=== PATIENT | male | born 1990 | race Hispanic/Latino ===

== ENCOUNTER 2024-10-26 14:50 | Emergency (ER) | payer BC, SELFPAY ==
[2024-10-26 15:11] VITALS: BP 170/74; PULSE 87; RESP 16; TEMP 36.4; O2SAT 99
--- NOTE | 2024-10-26 15:36 | ED_ITS ---
HPI - Ear Problem General Chief complaint: Ear Stated complaint: Ear, Maybe needing tubes Time Seen by Provider: 10/26/24 15:36 Focused HPI: This is a 33 year old male that presents to the ER for frequent ear infections. This has been ongoing over the last couple of years. He tried to see an ENT doctor, but they did not accept his insurance. Reports bilateral ear pain currently. Was prescribed prednisone recently for this by urgent care with little relief. Reports drainage from both ears. Denies fevers. GENERAL: Well-appearing, well-nourished, and in no acute distress. HEAD: Normocephalic, atraumatic. CHEST: Clear to auscultation. ?No respiratory distress. HEART: Regular rate and rhythm.? NEURO: ?Alert and oriented x3. Patient screened in triage and initial orders placed.? ?Additional care and disposition to be based upon?diagnostic testing and treatment. Related Data Allergies Allergy/AdvReac Type Severity Reaction Status Date / Time No Known Allergies Allergy Verified 10/26/24 14:51 Review of Systems Review of Systems: All systems reviewed & are unremarkable except as noted in HPI and below Constitutional: Constitutional: Denies fever(s) ENT: Comments: Reports otalgia PMFSH Past Medical History Medical History (Updated 10/26/24 @ 17:22 by Su Dukes PA-C) No active medical problems Social History Social History (Updated 10/26/24 @ 17:22 by Su Dukes PA-C) Substance use: never Exam Narrative: GENERAL: Well-appearing, well-nourished, and in no acute distress. HEAD: Normocephalic, atraumatic. EYES: EOMI. ENT: Nares clear, no rhinorrhea or epistaxis. Mucous membranes moist. Bilateral TMs pearly brantley non-bulging. bilateral TMs are erythematous and bulging. Left external auditory canal with moderate irritation NECK: Supple. No adenopathy or masses. EXTREMITIES: Normal range of motion. No edema. SKIN: Warm, dry, no rash. NEURO: No focal deficits. Alert and oriented x3. PSYCH: Normal mood and affect Course Course Emergency Course: patient updated on his workup and agrees with plan of care Vital Signs Vital signs: Vital Signs Temperature 97.6 F 10/26/24 15:11 Pulse Rate 87 10/26/24 15:11 Respiratory Rate 16 10/26/24 15:11 Blood Pressure 170/74 H 10/26/24 15:11 Pulse Oximetry 99 10/26/24 15:11 Temperature 97.6 F 10/26/24 15:11 Pulse Rate 87 10/26/24 15:11 Respiratory Rate 16 10/26/24 15:11 Blood Pressure 170/74 H 10/26/24 15:11 Pulse Oximetry 99 10/26/24 15:11 Medical Decision Making MDM Narrative Medical decision making narrative: patient presents to the emergency department for ear pain. Reports this has been a chronic issue for him over the last several years. Has not been evaluated by ENT for this yet. Today he does have findings of otitis media bilaterally with erythematous, bulging TMs. Also has some findings of otitis externa on the left. Will be started on oral antibiotics as well as topical. Will be given follow-up with ENT. He was given warnings to return to the ER Vital Signs Vital Signs: Vital Signs Temperature 97.6 F 10/26/24 15:11 Pulse Rate 87 10/26/24 15:11 Respiratory Rate 16 10/26/24 15:11 Blood Pressure 170/74 H 10/26/24 15:11 Pulse Oximetry 99 10/26/24 15:11 Temperature 97.6 F 10/26/24 15:11 Pulse Rate 87 10/26/24 15:11 Respiratory Rate 16 10/26/24 15:11 Blood Pressure 170/74 H 10/26/24 15:11 Pulse Oximetry 99 10/26/24 15:11 Critical Care Time Critical Care Time Critical Care Time: No Discharge Plan Discharge Clinical Impression: Otitis media Qualifiers: Otitis media type: unspecified Chronicity: acute Qualified Code(s): H66.90 - Otitis media, unspecified, unspecified ear Patient Disposition: Home, Self-Care Condition: Stable Instructions: Antibiotic Form, Swimmer's Ear (ED), Ear Infection (ED) Additional Instructions: Return to the emergency department for worsening symptoms, or any other concerns Remain well-hydrated, get plenty of rest. Take Tylenol or Motrin [id number] for pain as needed. Flonase for nasal congestion. Zyrtec for runny nose. Take oral antibiotic as prescribed. Instill topical antibiotic as prescribed in the left ear Follow up with ENT Patient Language: Kazakh Prescriptions: New amoxicillin-pot clavulanate 875-125 mg tablet 1 tablet PO Q12H 10 Days Qty: 20 0RF ofloxacin 0.3 % drops 10 drp LEFT EAR DAILY 7 Days Qty: 10 0RF Follow-up/Referrals: Margarito Murphy MD [Physician] - UNKNOWN,DOCTOR [Primary Care Provider] -
== END 2024-10-26 17:40 | disposition home or self-care (01) ==
LOC: ANHED 15:49
PROVIDERS: Emergency Provider Physician Assistant
DX: H66.93 Otitis media, unspecified, bilateral (principal)
CPT/HCPCS: 99283

== ENCOUNTER 2025-07-16 15:36 | Emergency (ER) | payer BC, SELFPAY ==
--- NOTE | ~2025-07-16 | XR_ITS ---
EXAMINATION: XR ankle LT min 3V, XR foot LT min 3V DATE: 07/16/2025 20:22 INDICATION: Left foot and ankle pain post sports injury TECHNIQUE: 1. Anteroposterior, mortise, additional oblique and lateral view of the left ankle were obtained. 2. Dorsoplantar, two oblique and lateral views of the left foot were obtained. COMPARISON: None. FINDINGS: Alignment of the left foot and ankle is normal. No fracture or osteochondral lesion. Joint spaces are well maintained. No ankle joint effusion. The soft tissues are unremarkable. IMPRESSION: 1. Negative left foot and ankle radiographs. Reviewed, dictated and finalized at location A. IMPRESSION: 1. Negative left foot and ankle radiographs.
[2025-07-16 15:41] VITALS: BP 187/61; PULSE 97; RESP 20; TEMP 36.5; O2SAT 99
[2025-07-16 18:43] VITALS: BP 140/83; PULSE 99; RESP 20; TEMP 36.4; O2SAT 95
[2025-07-16 19:30] VITALS: BP 130/73; PULSE 85; PULSE 86; RESP 14; RESP 16; O2SAT 97; O2SAT 98
--- NOTE | 2025-07-16 21:53 | ED_ITS ---
HPI - Extremity Injury (Lower) General Chief Complaint: Extremity Injury, Lower Stated Complaint: L ankle injury Time Seen by Provider: 07/16/25 20:57 Source: patient Mode of arrival: ambulatory Limitations: no limitations History of Present Illness HPI Narrative: Patient is a 34-year-old male who presents the ED with report of left ankle/calf pain. Patient reports he was playing basketball and went to taken off in a sprint and felt a pain/snap in his left posterior ankle/heel. Was unable to bear any weight on his L foot afterwards. Denies any other injuries. Denies numbness. Has not taken anything for pain. Related Data Allergies Allergy/AdvReac Type Severity Reaction Status Date / Time No Known Allergies Allergy Verified 07/16/25 19:29 Review of Systems Review of Systems: All systems reviewed & are unremarkable except as noted in HPI. All systems reviewed & are unremarkable except as noted in HPI and below PMFSH Past Medical History Medical History No active medical problems Social History Social History Substance use: never Exam Narrative: GENERAL: Well appearing, well-nourished, non-toxic, in no acute distress. HEAD: Normocephalic, atraumatic. RESPIRATORY: Airway patent, respirations nonlabored. CARDIOVASCULAR: Regular rate and rhythm. Pedal pulses intact and easily palpable. MUSCULOSKELETAL: No gross deformities. Patient unable to Dorsi or plantar flex on left ankle. Sensation intact. Capillary refill intact. Swelling, tenderness to palpation, bruising to left heel/Achilles region, distal calf. No palpable tendon along posterior heel/ankle. Positive Ruiz test LLE. SKIN: Warm, dry, normal color. NEURO: A&O X3. Speech clear. No ataxic movements. PSYCHIATRIC: Appropriate mood and affect. Normal interaction. Course Vital Signs Vital signs: Vital Signs Temperature 97.7 F 07/16/25 15:41 Pulse Rate 97 07/16/25 15:41 Respiratory Rate 20 07/16/25 15:41 Blood Pressure 187/61 H 07/16/25 15:41 Pulse Oximetry 99 07/16/25 15:41 Oxygen Delivery Room Air 07/16/25 15:41 Temperature 97.6 F 07/16/25 18:43 Pulse Rate 76 07/16/25 22:23 Respiratory Rate 14 07/16/25 22:23 Blood Pressure 139/71 07/16/25 22:23 Pulse Oximetry 99 07/16/25 22:23 Oxygen Delivery Room Air 07/16/25 19:30 MDM - Extremity Injury (Lower) MDM Narrative Medical decision making narrative: Exam concerning for a ruptured Achilles tendon of left lower extremity. Positive Ruiz test. History consistent with this as well. Otherwise neurovascularly intact. No other injuries. X-rays interpreted by myself without obvious acute osseous abnormality. There is a subtle cortical irregularity along posterior talus on lateral views of ankle xray, but does not appear consistent with acute fx. Patient placed in short leg posterior splint. Given crutches. Given pain control. Will be referred to orthopedics for further evaluation. Discussed rice therapy, strict nonweightbearing, strict return precautions. Patient in agreement plan. Discharged in stable condition. Medical Records Attestation: I reviewed the patient's medical records. Imaging Data Attestation: I personally reviewed and interpreted this imaging study as follows: Discharge Plan Discharge Clinical Impression: Rupture Achilles tendon Qualifiers: Encounter type: initial encounter Laterality: left Qualified Code(s): S86.012A - Strain of left Achilles tendon, initial encounter Patient Disposition: Home Condition: Stable Instructions: Antibiotic Form, Achilles Tendon Rupture (ED) Additional Instructions: You need to follow-up with orthopedics for further evaluation. Call office Thursday to make follow-up appointment. Wear splint until seen by orthopedics. Avoid weight-bearing on left leg. Use crutches for assistance with walking. Recommend frequent elevation of leg, frequent icing to ankle/calf. Recommend Tylenol/ibuprofen around the clock as needed for pain. Recommend oxycodone as needed for more severe pain. Return to the ED if you experience worsening pain/swelling, recurrent injury, numbness, or any other symptoms of concern. Patient Language: Hungarian Prescriptions: New oxycodone 5 mg tablet 5 mg PO Q6H PRN (Reason: pain) Qty: 20 0RF No Action amoxicillin-pot clavulanate 875-125 mg tablet 1 tablet PO Q12H 10 Days Qty: 20 0RF ofloxacin 0.3 % drops 10 drp LEFT EAR DAILY 7 Days Qty: 10 0RF Follow-up/Referrals: Ralph Ryder MD [Physician, Orthopedics] Referral Note: ORTHOPEDICS UNKNOWN,DOCTOR [Primary Care Provider] Time of Disposition: 21:56
[2025-07-16] MEDS: HYDROcodone/acetaminophen (*CRX) 5-325 MG TABLET 1 TAB PO (22:05)
[2025-07-16] MEDS: KETOROLAC (*BKC) 60 MG/2 ML VIAL IM (22:05)
[2025-07-16 22:23] VITALS: BP 139/71; PULSE 76; RESP 14; O2SAT 99
[2025-07-16 22:30] VITALS: BP 139/71; PULSE 76; RESP 14; O2SAT 99
== END 2025-07-16 22:30 | disposition home or self-care (01) ==
PROVIDERS: Emergency Provider Physician Assistant
DX: S86.012A Strain of left Achilles tendon, initial encounter (principal); X50.9XXA Other and unspecified overexertion or strenuous movements or postures, initial encounter; Y93.67 Activity, basketball
CPT/HCPCS: 29515; 73610; 73630; 96372; 99283; A9270; J1885

== ENCOUNTER 2025-07-26 08:08 | Emergency (ER) | payer BC, SELFPAY ==
--- OUTSIDE RECORDS SUMMARY | 2025-07-25 07:41 | XMS_ITS | Continuity of Care Document ---
Author Organization [facility] Address [address] [facility] [place] [address] Phone Care Team Providers Care Customer Service Driver Name Role Phone Renzo Bryson MD Unavailable Unavailable Allergies, Adverse Reactions, Alerts Substance Reaction Status Criticality No Known Allergies Active No Inform ation Procedures Procedure Date OFFICE/OUTPATIENT VISIT, [facility] Advance Directives Directive Yes / No Effective Date File Name No Information Encounters Encounter Description Practice Location Reason(s) For Visit Diagnoses Date Provider Providers Copied on Encounter OFFICE/OUTPATI ENT VISIT, [facility], [address], [id number], tel:[phone] [facility] calf (chief complaint) Pain in left leg Braydon Muller. [address] [place], [place], [id number], . tel:[phone] Family History Family Member Type Diagnosis Age At Onset No Information Payers Payer name Insurance type Covered libertarian ID Kenzie howardashley(s) [facility] CI [id number] Social History Type Description Quantity Date Captured Comments Alcohol Use Details No Caffeine Use Details Unknown Tobacco Use Status Current non-smoker Smoking Status Never smoker Non-Smoking Tobacco Use Details : No Details Available : No Details Available Sex Male Vital Signs Date / Time: Height Weight BMI Pulse Rate Blood Pressure Temperature Respiratory Rate Body Surface Area Head Circumference BMI percentile Pulse Ox Inhaled Ox 12:54 PM 69.00 in 209.40 lbs 30.9 2 kg/m eter (2) 93 /min 130/90 mm[Hg] 98.1 F 16 /min Chief Complaint And Reason For Visit From encounter dated '07/25/2025 12:41'. calf (chief complaint). Description: Pt c/o left ankle/calf pain. Pt was playing basketball and hetried to sprint and felt pain left posterior ankle ad heel area on 07/16/25. he went to ER and he had negative left ankle and foot x ray. he was diagnosed with ruptured left achilles tendon. he was splinted and sent home with walker. He has been non weight bearing on left leg. He was referred to ortho but when he called to make mynor he was told that ortho does not take his insurance. he also made mynor with Dr. geoff estes and mynor is not until October. Pt made mynor to see me today Plan Of Treatment Date Type Action Status No Information History Of Present Illness Encounter Date Complaint History Of Prese nt Illness calf Pt c/o left ankl e/calf pain. Pt was playing basketball and he tried to sprint and felt pain left posterior ankle ad heel area on 07/16/25. he went to ER and he had negative left ankle and foot x ray. he was diagnosed with ruptured left achilles tendon. he was splinted and sent home with walker. He has been non weight bearing on left leg. He was referred to ortho but when he called to make mynor he was told that ortho does not take his insurance. he also made mynor with Dr. geoff estes and mynor is not until October. Pt made mynor to see me today Instructions Date Instruction Additional Infor mation No Information Assessments Type Assessment Date assessment Pain in left leg Mental Status Date Cognitive Assessment Orientation - [place] ed to time, place, person, situation.
--- OUTSIDE RECORDS SUMMARY | 2025-07-25 07:41 | XMS_ITS | Continuity of Care Document ---
Author Organization [facility] Address [address] [facility] [facility] [place] [address] Phone Care Team Providers Care Precision Filer Hand Name Role Phone Renzo Bryson MD Unavailable Unavailable Allergies, Adverse Reactions, Alerts Substance Reaction Status Criticality No Known Allergies Active No Inform ation Procedures Procedure Date OFFICE/OUTPATIENT VISIT, [facility] Advance Directives Directive Yes / No Effective Date File Name No Information Encounters Encounter Description Practice Location Reason(s) For Visit Diagnoses Date Provider Providers Copied on Encounter OFFICE/OUTPATI ENT VISIT, [facility], [address] [place], [id number], tel:[phone] [facility] calf (chief complaint) Pain in left leg Braydon Muller. [address] [place], [place], [id number], . tel:[phone] Family History Family Member Type Diagnosis Age At Onset No Information Payers Payer name Insurance type Covered alliance party ID Kenzie howardashley(s) [facility] CI [id number] Social History Type Description Quantity Date Captured [...] Mental Status Date Cognitive Assessment Orientation - [place] ed to time, place, person, situation.
[2025-07-26 08:14] VITALS: BP 183/83; PULSE 78; RESP 18; TEMP 36.6; O2SAT 96
[2025-07-26] MEDS: HYDROcodone/acetaminophen (*CRX) 10-325 MG TABLET 1 TAB PO (08:48)
--- NOTE | 2025-07-26 09:48 | ED_ITS ---
HPI - General Adult General Chief complaint: Recheck/Abnormal Lab/Rx Stated complaint: MED REFILL, TORN ACHILLES TENDON Time Seen by Provider: 07/26/25 08:37 History of Present Illness HPI narrative: 34-year-old male presents to the emergency department for evaluation for persistent left leg pain. Patient was recently evaluated emergency department and diagnosed with Achilles tendon tear. Patient is having difficulty getting follow-up with Orthopedics because no physicians take his insurance. Patient states his crutches did break and patient is using a roller to ambulate. Patient is scheduled to have follow-up with Orthopedics and [facility]. Related Data Allergies Allergy/AdvReac Type Severity Reaction Status Date / Time No Known Allergies Allergy Verified 07/26/25 08:09 Review of Systems Review of Systems: All systems reviewed & are unremarkable except as noted in HPI and below PMFSH Past Medical History Medical History No active medical problems Social History Social History Substance use: never Exam Narrative: APPEARANCE: Well appearing, no pain, no distress, well-nourished. HEAD: normocephalic, atraumatic. EYES: PERRLA/EOMI, conjunctivae clear. NOSE: Normal no drainage EARS:TMS clear with good light reflex. THROAT: Pharynx clear, no exudate. NECK: Supple. No adenopathy, no masses. RESPIRATORY: Airway patent, respirations nonlabored. Clear to auscultation bilaterally, no rales, rhonchi, wheezing. CARDIOVASCULAR: Regular rate and rhythm without murmurs rubs or gallops. ABDOMINAL: Soft, nontender, nondistended, normal bowel sounds MUSCULOSKELETAL: Laxity of Achilles tendon, no lower extremity edema, neurovascularly intact NEURO: Alert. Cranial nerves II through XII intact. Good gait. Good coordination SKIN: Warm, dry. Normal Color Course Vital Signs Vital signs: Vital Signs Temperature 97.8 F 07/26/25 08:14 Pulse Rate 78 07/26/25 08:14 Respiratory Rate 18 07/26/25 08:14 Blood Pressure 183/83 H 07/26/25 08:14 Pulse Oximetry 96 07/26/25 08:14 Oxygen Delivery Room Air 07/26/25 08:14 Temperature 97.8 F 07/26/25 08:14 Pulse Rate 59 L 07/26/25 10:43 Respiratory Rate 20 07/26/25 10:43 Blood Pressure 148/68 H 07/26/25 10:43 Pulse Oximetry 93 07/26/25 10:43 Oxygen Delivery Room Air 07/26/25 08:14 Medical Decision Making MDM Narrative Medical decision making narrative: 34-year-old male present to the emergency department for evaluation for persistent left leg pain and poorly controlled pain due to lack of pain control medications for home. Patient states that his insurance was not accepted by multiple orthopedic physicians that he does not have follow-up to till August. patient's splint was replaced, patient was provided additional crutches. patient was provided additional medication for pain control. Patient was also provided follow-up with Dr Ryder. All questions concerns were addressed. Patient was well-appearing at time of discharge. Vital Signs Vital Signs: Vital Signs Temperature 97.8 F 07/26/25 08:14 Pulse Rate 78 07/26/25 08:14 Respiratory Rate 18 07/26/25 08:14 Blood Pressure 183/83 H 07/26/25 08:14 Pulse Oximetry 96 07/26/25 08:14 Oxygen Delivery Room Air 07/26/25 08:14 Temperature 97.8 F 07/26/25 08:14 Pulse Rate 59 L 07/26/25 10:43 Respiratory Rate 20 07/26/25 10:43 Blood Pressure 148/68 H 07/26/25 10:43 Pulse Oximetry 93 07/26/25 10:43 Oxygen Delivery Room Air 07/26/25 08:14 Discharge Plan Discharge Clinical Impression: Achilles tendon injury Patient Disposition: Home Condition: Stable Instructions: Antibiotic Form, Achilles Tendon Rupture (ED), Splint Care (ED) Additional Instructions: splint care as directed. have close follow-up with Orthopedics. Crutches for nonweightbearing. ibuprofen for pain control. [place] as needed for additional pain control. Patient Language: Polish Prescriptions: New hydrocodone-acetaminophen 5-325 mg tablet 1 tablet PO Q12H PRN (Reason: pain) Qty: 14 0RF No Action amoxicillin-pot clavulanate 875-125 mg tablet 1 tablet PO Q12H 10 Days Qty: 20 0RF ofloxacin 0.3 % drops 10 drp LEFT EAR DAILY 7 Days Qty: 10 0RF oxycodone 5 mg tablet 5 mg PO Q6H PRN (Reason: pain) Qty: 20 0RF Follow-up/Referrals: Ralph Ryder MD [Physician, Orthopedics] UNKNOWN,DOCTOR [Primary Care Provider]
--- NOTE | 2025-07-26 10:23 | PC.NURSE ---
patient given crutches, provided instructions, patient had no complaints of sizing. patient was able to utilize crutches to ambulate to the stretcher
[2025-07-26 10:43] VITALS: BP 148/68; PULSE 59; RESP 20; O2SAT 93
--- NOTE | 2025-07-26 10:44 | PC.NURSE ---
patient feeling light headed, nauseated, diaphoretic, and states he feels like he's going to pass out. discussed with Dr. Higuera, going to give some food- and discharge once patient is feeling less woozy
--- NOTE | 2025-07-26 11:06 | PC.NURSE ---
patient feeling better after eating some food due to getting pain medication. splint from inital injury was removed, new short leg posterior splint placed and was seen by Dr. Higuera
== END 2025-07-26 11:22 | disposition home or self-care (01) ==
PROVIDERS: Emergency Provider Emergency Medicine
DX: S86.012D Strain of left Achilles tendon, subsequent encounter (principal); X58.XXXD Exposure to other specified factors, subsequent encounter
CPT/HCPCS: 99283; A9270

== ENCOUNTER 2025-09-29 11:54 | Emergency (ER) | payer BC, SELFPAY ==
[2025-09-29 11:58] VITALS: BP 161/72; PULSE 91; RESP 18; TEMP 36.4; O2SAT 99
[2025-09-29 14:04] LABS: Hematocrit 43.7 % (42.0-52.0); Hemoglobin 15.1 g/dL (14.0-18.0); Immature Granulocyte Percent A 0.4 % (0-0.5); Lymphocytes Absolute Auto 1.88 K/mm3 (0.9-3.2); Mean Corpuscular HGB Conc 34.6 g/dl (32-36); Mean Corpuscular Hemoglobin 32.2 pg (26-34); Mean Corpuscular Volume 93.2 fl (80-100); Nucleated Red Blood Cells Absolute Auto 0.000 K/mm3 (0.0-0.012); Nucleated Red Blood Cells Perc 0.0 % (0.0-0.2); Platelet Count Result 258 k/mm3 (150-375); Red Blood Count 4.69 M/mm3 (4.6-6.20); White Blood Count 10.0 K/mm3 (4.5-10.0)
[2025-09-29 14:15] LABS: Anion Gap 8 mmol/L (4-12); Blood Urea Nitrogen 21 mg/dL (9-20); Calcium 9.2 mg/dL (8.4-10.2); Carbon Dioxide 25 mmol/L (22-30); Chloride 104 mmol/L (98-107); Estimated CRCL calculation 114 ml/min; Estimated Glomerular Filt Rate > 60; Glucose 99 mg/dL (65-110); Potassium 4.6 mmol/L (3.4-5.0); Sodium 137 mmol/L (137-145)
--- NOTE | 2025-09-29 14:37 | ED_ITS ---
HPI - Wound/Laceration General Chief Complaint: Wound/Laceration Stated Complaint: wound on foot Time Seen by Provider: 09/29/25 13:17 Source: patient Mode of arrival: ambulatory Limitations: no limitations History of Present Illness HPI narrative: 34-year-old otherwise healthy status post left Achilles tendon repair at the [facility] on 08/[address] Farhan Piper here with a complaints of drainage from the surgical wound . denies any fever or redness , has an appointment with his Ortho next wk. Onset (ago): day(s) (2) Location: other (left Achilles ) Associated symptoms: none Related Data Allergies Allergy/AdvReac Type Severity Reaction Status Date / Time No Known Allergies Allergy Verified 07/26/25 08:09 Review of Systems 2 Review of Systems: All systems reviewed & are unremarkable except as noted in HPI and below Constitutional: Constitutional: Reports no additional constitutional complaints Eyes: Eyes: Reports no additional eye complaints ENT: Reports system reviewed and no additional complaints, except as documented Cardiovascular: Cardiovascular: Reports no additional cardiovascular complaints Respiratory: Respiratory: Reports no additional respiratory complaints Gastrointestinal: Gastrointestinal: Reports no additional gastrointestinal complaints Musculoskeletal: Musculoskeletal: Reports as per HPI Neurologic: Reports system reviewed and no additional complaints, except as documented PMFSH Past Medical History Medical History No active medical problems Social History Social History Substance use: never Exam 2 Narrative: GENERAL: Well-appearing, well-nourished, and in no acute distress. HEAD: Normocephalic, atraumatic. EYES: PERRLA and EOMI. ENT: Nares clear, no rhinorrhea or epistaxis. Mucous membranes moist. NECK: Supple. CHEST: Clear to auscultation. No respiratory distress. HEART: Regular rate and rhythm. No murmur heard. Normal peripheral pulses. EXTREMITIES: Normal range of motion. No edema. examination of the left Achilles there was a small area on the surgical scar which is open, not has no active drainage no surrounding erythema. SKIN: Warm, dry, no rash. NEURO: No focal deficits. Alert and oriented x3. PSYCH: Normal mood and affect. Course Course Emergency Course: Notified patient about his lab work advised him to take antibiotic as prescribed, follow-up with his orthopedic doctor as scheduled Vital Signs Vital signs: Vital Signs Temperature 36.4 C 09/29/25 11:58 Pulse Rate 91 09/29/25 11:58 Respiratory Rate 18 09/29/25 11:58 Blood Pressure 161/72 H 09/29/25 11:58 Pulse Oximetry 99 09/29/25 11:58 Temperature 36.4 C 09/29/25 11:58 Pulse Rate 91 09/29/25 11:58 Respiratory Rate 18 09/29/25 11:58 Blood Pressure 161/72 H 09/29/25 11:58 Pulse Oximetry 99 09/29/25 11:58 MDM - Wound/Laceration Differential Diagnosis Differential diagnosis: Likely abscess Lab Data 09/29/25 13:58 09/29/25 13:58 Labs: Lab Results 09/29/25 Range/Units 13:58 WBC 10.0 (4.5-10.0) K/mm3 RBC 4.69 (4.6-6.20) M/mm3 Hgb 15.1 (14.0-18.0) g/dL Hct 43.7 (42.0-52.0) % MCV 93.2 (80-100) fl MCH 32.2 (26-34) pg MCHC 34.6 (32-36) g/dl RDW 12.1 (11.5-14.5) % Plt Count 258 (150-375) k/mm3 MPV 9.1 (7.4-10.4) fl Immature Gran % (Auto) 0.4 (0-0.5) % Neut % (Auto) 62.0 (45.5-73.1) % Lymph % (Auto) 18.8 (18.3-44.2) % [place] % (Auto) 9.0 H (2.6-8.5) % Eos % (Auto) 9.3 H (0-4.4) % Baso % (Auto) 0.5 (0.2-1.2) % Lymph # (Auto) 1.88 (0.9-3.2) K/mm3 [place] # (Auto) 0.9 H (0.1-0.6) K/mm3 Eos # (Auto) 0.9 H (0-0.3) K/mm3 Baso # (Auto) 0.1 (0.0-0.1) K/mm3 Abs Immat Gran (auto) 0.04 H (0.00-0.031) K/mm3 Absolute Neuts (auto) 6.2 (1.3-6.7) K/mm3 Absolute Nucleated RBC 0.000 (0.0-0.012) K/mm3 Nucleated RBC % 0.0 (0.0-0.2) % Sodium 137 (137-145) mmol/L Potassium 4.6 (3.4-5.0) mmol/L Chloride 104 (98-107) mmol/L Carbon Dioxide 25 (22-30) mmol/L Anion Gap 8 (4-12) mmol/L BUN 21 H (9-20) mg/dL Creatinine 0.92 (0.7-1.3) mg/dL Estim Creat Clear Calc 114 ml/min Estimated GFR > 60 (59 - ) Glucose 99 (65-110) mg/dL Calcium 9.2 (8.4-10.2) mg/dL Discharge Plan Discharge Clinical Impression: Visit for wound check Patient Disposition: Home Condition: Stable Instructions: Wound Infection (DC) Additional Instructions: take antibiotic as prescribed, follow-up with the orthopedic doctor. Patient Language: Chinese Prescriptions: New cephalexin 500 mg tablet 500 mg PO Q8H 7 Days Qty: 21 0RF No Action hydrocodone-acetaminophen 5-325 mg tablet 1 tablet PO Q12H PRN (Reason: pain) Qty: 14 0RF amoxicillin-pot clavulanate 875-125 mg tablet 1 tablet PO Q12H 10 Days Qty: 20 0RF ofloxacin 0.3 % drops 10 drp LEFT EAR DAILY 7 Days Qty: 10 0RF oxycodone 5 mg tablet 5 mg PO Q6H PRN (Reason: pain) Qty: 20 0RF Follow-up/Referrals: UNKNOWN,DOCTOR [Primary Care Provider] Time of Disposition: 14:48
== END 2025-09-29 14:59 | disposition home or self-care (01) ==
PROVIDERS: Emergency Provider Family Medicine
DX: Z47.89 Encounter for other orthopedic aftercare (principal)
CPT/HCPCS: 36415; 80048; 85025; 87070; 87186; 87205; 99283